=== PATIENT | male | born 1990 | race Caucasian/White ===

== ENCOUNTER 2019-07-31 09:20 | Emergency (ER) | payer SELFPAY ==
[2019-07-31] MEDS ORDERED: Aspirin 81 mg CHEW TAB* 81 MG TAB.CHEW PO ONE (09:29)
[2019-07-31 09:39] LABS: ABS Eosinophils 0.1 10^3/ul (0-0.6); ABS Lymphocytes 2.7 10^3/ul (1.0-4.8); ABS Monocytes 0.7 10^3/ul (0-0.8); Eosinophil % 1.1 %; Hematocrit 55 % (42-52); Hemoglobin 19.1 g/dL (14.0-18.0); Lymphocyte % 35.9 %; Mean Corpuscular HGB Conc 35 g/dL (31-36); Mean Corpuscular Hemoglobin 31 pg (27-31); Mean Corpuscular Volume 89 fL (80-94); Mean Platelet Volume 7.9 fL (7.4-10.4); Nucleated Red Blood Cells % 0.2; Platelet Count 269 10^3/uL (150-450); Red Blood Count 6.16 10^6 /uL (4.18-5.48); Red Cell Distribution Width 13 % (10-15); White Blood Count 7.4 10^3/uL (3.5-10.8)
--- NOTE | 2019-07-31 09:41 | ED ---
HPI Chest Pain - HPI Summary HPI Summary: 29 year old M presenting to [facility] with a chief complaint of constant pinching chest pain since 22:00 last night. The patient rates the pain 2/10 in severity. Patient reports nausea and vomiting this morning. Symptoms aggravated by nothing. Symptoms alleviated by nothing. The patient states that he is prescribed Hydroxyzine but did not take any today. Patient denies shortness of breath or syncope. He reports a history of anxiety for the last 5 months. He denies an active history of smoking or alcohol use. Medication list reviewed. Allergy list reviewed. Home Medications Medication Instructions Recorded Confirmed Type L.acidoph,Paracasei, B.lactis 1 each PO DAILY 07/31/19 07/31/19 History [Probiotic] hydrOXYzine HCL TAB* [Atarax 10 MG 10 mg PO .1-3X/DAY PRN 07/31/19 07/31/19 History TAB*] - History of Current Complaint Chief Complaint: EDChestPainROMI Time Seen by Provider: 07/31/19 09:28 Hx Obtained From: Patient Onset/Duration: Started Hours Ago Timing: Constant Current Severity: Mild Pain Intensity: 2 Pain Scale Used: 0-10 Numeric Character: Other: - Pinching Aggravating Factor(s): Nothing Alleviating Factor(s): Nothing Associated Signs and Symptoms: Positive: Nausea, Vomiting. Negative: Shortness of Breath, Syncope - Allergy/Home Medications Allergies/Adverse Reactions: Allergies Allergy/AdvReac Type Severity Reaction Status Date / Time No Known Allergies Allergy Verified 07/31/19 09:30 Home Medications: Home Medications L.acidoph,Paracasei, B.lactis [Probiotic] 1 each PO DAILY 07/31/19 [History Confirmed 07/31/19] hydrOXYzine HCL TAB* [Atarax 10 MG TAB*] 10 mg PO .1-3X/DAY PRN 07/31/19 [ History Confirmed 07/31/19] PMH/Surg Hx/FS Hx/Imm Hx EENT History: Denies: Hx Deafness Psychiatric History: Reports: Hx Anxiety Infectious Disease History: No Infectious Disease History: Denies: Traveled Outside the [place] in Last 30 Days - Family History Known Family History: Positive: Cardiac Disease - [place] at older age, Hypertension - Social History Alcohol Use: None Hx Tobacco Use: No Smoking Status (MU): Never Smoked Tobacco Review of Systems Positive: Chest Pain Negative: Shortness Of Breath Positive: Vomiting, Nausea Negative: Syncope All Other Systems Reviewed And Are Negative: Yes Physical Exam - Summary Physical Exam Summary: VITAL SIGNS: Reviewed. GENERAL: Patient is a well-developed and nourished male who is lying comfortable in the stretcher. Patient is not in any acute respiratory distress. HEAD AND FACE: No signs of trauma. No ecchymosis, hematomas or skull depressions. No sinus tenderness. EYES: PERRLA, EOMI x 2, No injected conjunctiva, no nystagmus. EARS: Hearing grossly intact. Ear canals and tympanic membranes are within normal limits. MOUTH: Oropharynx within normal limits. NECK: Supple, trachea is midline, no adenopathy, no JVD, no carotid bruit, no c- spine tenderness, neck with full ROM. CHEST: Symmetric, no tenderness at palpation. LUNGS: Clear to auscultation bilaterally. No wheezing or crackles. CVS: Regular rate and rhythm, S1 and S2 present, no murmurs or gallops appreciated. ABDOMEN: Soft, non-tender. No signs of distention. No rebound, no guarding, and no masses palpated. Bowel sounds are normal. EXTREMITIES: FROM in all major joints, no edema, no cyanosis or clubbing. NEURO: Alert and oriented x 3. No acute neurological deficits. Speech is normal and follows commands. SKIN: Dry and warm. Triage Information Reviewed: Yes Vital Signs On Initial Exam: Initial Vitals Temp Pulse Resp BP Pulse Ox 97.5 F 95 18 145/84 95 07/31/19 09:28 07/31/19 09:28 07/31/19 09:28 07/31/19 09:28 07/31/19 09:28 Vital Signs Reviewed: Yes Procedures - Sedation Patient Received Moderate/Deep Sedation with Procedure: No Diagnostics - Vital Signs Vital Signs Temp Pulse Resp BP Pulse Ox 07/31/19 09:28 97.5 F 95 18 145/84 95 - Laboratory Result Diagrams: 07/31/19 09:29 07/31/19 09:29 Lab Statement: Any lab studies that have been ordered have been reviewed, and results considered in the medical decision making process. - Radiology Chest x-ray Radiology Interpretation Completed By: Radiologist Summary of Radiographic Findings: No radiographic evidence for acute cardiopulmonary abnormality on this. portable chest x-ray. ED physician has reviewed this report. - EKG 09:25 Cardiac Rate: NL - 85 BPM EKG Rhythm: Sinus Rhythm Summary of EKG Findings: No ST elevations, inverted T-wave in leads 3 and AVL, and diffuse ST abnormalities with normal axis. ED physician has reviewed and interpreted this EKG. Chest Pain Course/Dx - Course Assessment/Plan: 29 year old M presenting to [facility] with a chief complaint of constant pinching chest pain since 22:00 last night. The patient rates the pain 2/10 in severity. Patient reports nausea and vomiting this morning. Symptoms aggravated by nothing. Symptoms alleviated by nothing. The patient states that he is prescribed Hydroxyzine but did not take any today. Patient denies shortness of breath or syncope. He reports a history of anxiety for the last 5 months. He denies an active history of smoking or alcohol use. Medication list reviewed. Allergy list reviewed. In the ED course the patient was placed on a cardiac rehabilitation specialist, IV access was obtained, IV fluids started. Past medical records reviewed. EKG: EKG is a normal sinus rhythm without any ST elevations. The patient has inverted T waves in II. No old EKG for comparison. Blood test w/o a significant abnormality except for hemoglobin of 19.1, hematocrit 55 , creatinine 1.22, the troponin is 0.00 and 4 hours apart the second troponin is also 0.00. Urinalysis is negative for UTI. Patient reports that all symptoms have resolved. Patient Heart score is: 0 therefore, low suspicion for CAD. Patient is not hypoxic or tachycardic. Wells criteria 0 . Therefore, no suspicion for PE. Patient has no abdominal bruit thus no suspicion for AAA. Patients pain does not radiate to the back and pain has resolved thus low suspicion for aortic dissection. I discussed all the findings and test results with the patient. Patient was instructed to return to the emergency room immediately if any of the symptoms return or worsen. Patient understands and agrees. Plan of care was discussed with the patient and patient understands and agrees. All questions were answered at patient satisfaction. There were no further complaints or concerns. PE before discharge: CVS: S1 and S2 present. No murmurs appreciated. Abdominal exam before discharge: Soft, non-tender. No signs of distention. No rebound no guarding, and no masses palpated. Bowel sounds are normal. Patient is alert and oriented x 3. Patient is hemodynamically stable. - Chest Pain Differential Diagnosis/HQI/PQRI: Acute [place], ACS, Angina, CHF, Chest Wall, GI Disease, Lower Respiratory Infection, Pulmonary Edema - Diagnoses Provider Diagnoses: Chest pain, Anxiety Discharge ED - Sign-Out/Discharge Documenting (check all that apply): Patient Departure - Discharge Plan Condition: Stable Disposition: HOME Patient Education Materials: Chest Pain (ED), Anxiety (ED) Referrals: Care [facility] [Outside] - 3 Days Additional Instructions: Follow up with your primary care provider within 3 days for chest pain and anxiety noted today. Return to the emergency department for any worsening or new symptoms. - Billing Disposition and Condition Condition: STABLE Disposition: Home - Attestation Statements Document Initiated by Scribe: Yes Documenting Scribe: Linda Ray Provider For Whom Manjitibe is Documenting (Include Credential): Ron Monique MD Scribe Attestation: Linda Quan scribed for Ron Monique MD on 08/01/19 at 1135. Scribe Documentation Reviewed: Yes Provider Attestation: The documentation as recorded by the Linda stallworth accurately reflects the service I personally performed and the decisions made by Ron duran MD Status of Scribe Document: Viewed
[2019-07-31] MEDS ORDERED: hydrOXYzine HCL TAB* 50 MG PO ONE (09:47)
[2019-07-31 09:54] LABS: Activated Partial Thrombo Time 34.2 seconds (26.0-38.0); INR 1.01 (0.82-1.09)
[2019-07-31 10:02] LABS: Albumin 4.8 g/dL (3.2-5.2); Albumin/Globulin Ratio 1.8 (1-3); BUN/Creatinine Ratio 12.3 (8-20); EGFR African American 86.2 (>60); EGFR Non-African American 71.3 (>60); Globulin 2.7 g/dL (2-4); Potassium 3.6 mmol/L (3.5-5.0); Total Bilirubin 1.2 mg/dL (0.2-1.0); Total Protein 7.5 g/dL (6.4-8.9)
[2019-07-31 10:05] LABS: CKMB ng/mL 1.2 ng/mL (0.6-6.3)
[2019-07-31 10:09] LABS: Urine Appearance Clear; Urine Bilirubin Negative (Negative); Urine Blood Negative (Negative); Urine Color Yellow; Urine Glucose Negative (Negative); Urine Ketones Negative (Negative); Urine Nitrite Negative (Negative); Urine Protein Negative (Negative); Urine Urobilinogen Negative (Negative)
[2019-07-31 11:21] LABS: TSH (Thyroid Stimulating Horm) 1.79 mcIU/mL (0.34-5.60)
[2019-07-31] MEDS ORDERED: NS 0.9% 1000 ML** 1,000 ML IV ONE (11:35)
[2019-07-31 13:59] VITALS: BP 139/82
== END 2019-07-31 13:59 | disposition home or self-care (01) ==
LOC: ED 09:20
DX: R07.89 Other chest pain (principal); F41.9 Anxiety disorder, unspecified; R11.2 Nausea with vomiting, unspecified
CPT/HCPCS: 36415; 71045; 80053; 81003; 82550; 82553; 83880; 84443; 84484; 85025; 85610; 85730; 93005; 96360; 99283; A9270-GY

== ENCOUNTER 2019-08-03 10:34 | Emergency (ER) | payer SELFPAY ==
--- NOTE | 2019-08-03 10:52 | ED ---
Complex/Multi-Sys Presentation - HPI Summary HPI Summary: Patient is a 29 year-old male presenting to [facility] accompanied by triny with a chief complaint of panic attack this morning as his recent health concerns are exacerbating his anxiety. He reports that he has been suffering from gradually worsening anxiety over the last few months, and he came to the ED on 07/31/2019 with burning chest pain resulting in possible concern for polycythemia but otherwise had a negative workup. Yesterday, he followed with his PCP, and during the physical, it was observed that his liver was enlarged, and labs were drawn to show elevated LFTs. The patient notes that he has a history of daily alcohol use but no longer drinks. He was advised by his PCP to have an EKG and liver U/S. Since then, his anxiety has increased. He has been taking Hydroxyzine for about a month around when he was diagnosed with the flu, and then he was recently prescribed Lexapro beginning on 07/31/2019 for anxiety. He states the Hydroxyzine only somewhat helps him with sleeping but not with the anxiety. He took melatonin last night as a sleep aid, but over the past few days he has only been sleeping about 3-4 hours. This morning, he felt the burning in his chest in the left anterior area radiating in the mid-sternal area despite taking Hydroxyzine about two hours ago. He endorses myalgias in the extremities, generalized weakness, diaphoresis, and decreased oral intake. Symptoms are rated 6/10 in severity. He denies any fever, chills, erythema of eyes, sore throat, rhinorrhea, shortness of breath, cough, abdominal pain, nausea, vomiting, dysuria, hematuria, edema, rash, or dizziness. He does not elicit any suicidal ideation. No other past medical history. Family history includes cardiac disease, hypertension. Nonsmoker, no alcohol use, no substance use. Medications reviewed. Allergies noted. - History Of Current Complaint Chief Complaint: EDGeneral Hx Obtained From: Patient Onset/Duration: Gradual Onset, Still Present, Worse Since Timing: Constant Severity Currently: Moderate Severity Initially: Moderate Location: Pain At: - burning in chest, myalgias in extremities Aggravating Factor(s): stress with health concerns Alleviating Factor(s): nothing Associated Signs And Symptoms: Positive: Weakness - generalized, Other - anxiety , myalgias in the extremities, iaphoresis, decreased oral intake; Negative: erythema of eyes, sore throat, rhinorrhea, hematuria, rash. Negative: Dizziness , SOB, Cough, Edema, Nausea, Vomiting, Abdominal Pain, Dysuria, Fever - Allergies/Home Medications Allergies/Adverse Reactions: Allergies Allergy/AdvReac Type Severity Reaction Status Date / Time No Known Allergies Allergy Verified 08/03/19 11:00 Home Medications: Home Medications L.acidoph,Paracasei, B.lactis [Probiotic] 1 each PO DAILY 07/31/19 [History Confirmed 08/03/19] hydrOXYzine HCL TAB* [Atarax 10 MG TAB*] 10 mg PO DAILY 07/31/19 [History Confirmed 08/03/19] Escitalopram * [Lexapro 5 mg (NF)] 5 mg PO DAILY 08/03/19 [History Confirmed 05/12] Melatonin (NF) 1.5 mg PO BEDTIME 08/03/19 [History Confirmed 08/03/19] PMH/Surg Hx/FS Hx/Imm Hx Endocrine/Hematology History: Denies: Hx Diabetes Cardiovascular History: Denies: Hx Hypercholesterolemia, Hx Hypertension Sensory History: Reports: Hx Contacts or Glasses Denies: Hx Deafness Opthamlomology History: Reports: Hx Contacts or Glasses Psychiatric History: Reports: Hx Anxiety - Surgical History Surgical History: None Surgery Procedure, Year, and Place: none Infectious Disease History: No Infectious Disease History: Denies: Traveled Outside the [place] in Last 30 Days - Family History Known Family History: Positive: Cardiac Disease - [place] at older age, Hypertension - Social History Alcohol Use: None Alcohol Amount: history of alcohol use Hx Substance Use: No Substance Use Type: Reports: None Hx Tobacco Use: No Smoking Status (MU): Never Smoked Tobacco Review of Systems Positive: Skin Diaphoresis, Other - sleep disturbance. Negative: Fever, Chills Negative: Erythema Negative: Sore Throat, Nasal Discharge Positive: Chest Pain - burning sensation left anterior to mid sternal Negative: Shortness Of Breath, Cough Positive: Other - decreased oral intake. Negative: Abdominal Pain, Vomiting, Nausea Negative: dysuria, hematuria Positive: Myalgia - extremities. Negative: Edema Negative: Rash Neurological/Mental Status: Other - Negative: dizziness Positive: Weakness - generalized Positive: Anxious. Negative: Other - suicidal ideation All Other Systems Reviewed And Are Negative: Yes Physical Exam - Summary Physical Exam Summary: Constitutional: Well-developed, Well-nourished, Alert. (-) Distressed Skin: Warm, Dry HENT: Normocephalic; Atraumatic Eyes: Conjunctiva normal Neck: Musculoskeletal ROM normal neck. (-) JVD, (-) Stridor, (-) Tracheal deviation Cardio: Rhythm regular, rate normal, Heart sounds normal; Intact distal pulses; The pedal pulses are 2+ and symmetric. Radial pulses are 2+ and symmetric. (-) Murmur Pulmonary/Chest wall: Effort normal. (-) Respiratory distress, (-) Wheezes, (-) Rales Abd: Soft, (-) tenderness, (-) Distension, (-) Guarding, (-) Rebound Musculoskeletal: (-) Edema Lymph: (-) Cervical adenopathy Neuro: Alert, Oriented x3 Psych: Anxious-appearing, Mood and affect otherwise Normal Triage Information Reviewed: Yes Vital Signs On Initial Exam: Initial Vitals Temp Pulse Resp BP Pulse Ox 97.7 F 103 20 163/96 98 08/03/19 10:35 08/03/19 10:35 08/03/19 10:35 08/03/19 10:35 08/03/19 10:35 Vital Signs Reviewed: Yes Procedures - Sedation Patient Received Moderate/Deep Sedation with Procedure: No Diagnostics - Vital Signs Vital Signs Temp Pulse Resp BP Pulse Ox 08/03/19 10:35 97.7 F 103 20 163/96 98 - Laboratory Result Diagrams: 08/03/19 11:14 08/03/19 11:13 Lab Statement: Any lab studies that have been ordered have been reviewed, and results considered in the medical decision making process. - Radiology CXR Radiology Interpretation Completed By: Radiologist Summary of Radiographic Findings: Impression: No radiographic evidence of acute cardiopulmonary disease. ED physician has reviewed this report. - Ultrasound Abd U/S Ultrasound Interpretation Completed By: Radiologist Summary of Ultrasound Findings: Impression: 1. Borderline hepatomegaly. Hepatosteatosis. 2. Negative for gallbladder pathology. ED physician has reviewed this report. - EKG 1107 Cardiac Rate: NL - 87 BPM EKG Rhythm: Sinus Rhythm Summary of EKG Findings: An EKG at 1107 reveals normal sinus rhythm at 87 BPM. No STEMI. ED physician has reviewed and interpreted this EKG. Re-Evaluation - Re-Evaluation First Eval Re-Evaluation Time: 14:15 Comment: We discussed all results and discharge plan. Patient is agreeable with discharge but would like to speak with mental health first. Complex Multi-Symp Course/Dx Course Of Treatment: Patient is a 29 year-old male presenting with gradually worsening anxiety over the last few months exacerbated with recent changes in health, beginning with the flu a month ago, burning chest pain evaluated three days ago in the ED, and yesterday after an appointment with his PCP who has concern for hepatomegaly and elevated LFTs and polycythemia warranting recommendation for EKG and liver U/S. Patient on Hydroxyzine for a month and Lexapro since 07/31/2019 without much relief of his anxiety, resulting in burning in the chest, sleep disturbance, decreased appetite, episodes of diaphoresis, mylagias in the extremities, and generalized weakness. No respiratory symptoms. No suicidal ideation. Noted alcohol use in the past but no current use. Nonsmoker. Physical exam significant for patient appearing anxious. Patient placed on release and technical records clerk. IV access obtained. Patient received Xanax PO for anxiety. Blood work reveals RBCs 5.97, hemoglobin 18.8, hematocrit 53, glucose 112, lactic acid 2.5, ALT 121. Negative troponin. TSH and free T4 within normal limits. EKG shows normal sinus rhythm at rate of 87 BPM, non-diagnostic for STEMI. Abdominal U/S reveals borderline hepatomegaly with hepatosteatosis, no gallbladder pathology. Chest XR is negative for acute cardiopulmonary disease. Reviewed office visit notes. PCP detected hepatomegaly on exam. Plan was to further workup polycythemia and get EKG and O2 saturation at next visit. All results discussed with patient. Patient is safe for discharge with plan for follow up with PCP in 1 week and hematology/oncology in 1-2 weeks. Patient agreeable with plan. Telma, psychiatric evaluation, is going to get [facility] involved with the patient following the patients request to speak with the mental health team. Patient agreeable with plan. - Diagnoses Provider Diagnoses: Panic attack, Chest pain, unspecified, Fatty liver, Elevated red blood cell count - Physician Notifications Discussed Care Of Patient With: Telma - psychiatric Instructed by Provider To: Other - Telma has spoken with the patient and will set up a plan for the patient with [facility]. Discharge ED - Sign-Out/Discharge Documenting (check all that apply): Patient Departure - Patient will be discharged home. - Discharge Plan Condition: Stable Disposition: HOME Patient Education Materials: Chest Pain (DC), Panic Attack (ED) Referrals: Care [facility] [Outside] - 1 Week Maribel Snider NP [Medical Doctor] - 2 Weeks Additional Instructions: Follow up with your primary care provider in 1 week. Follow up with hematology/ oncology in 1-2 weeks. Return to the emergency department for any new or worsening symptoms. - Attestation Statements Document Initiated by Scribe: Yes Documenting Scribe: Angela Henson Provider For Whom Manjitibe is Documenting (Include Credential): Aly Chanel MD Scribe Attestation: Angela Quan, scribed for Aly Chanel MD on 08/03/19 at 1705. Status of Scribe Document: Ready
[2019-08-03] MEDS ORDERED: ALPRAZolam TAB* 0.5 MG PO ONE (11:02)
[2019-08-03 11:41] LABS: ABS Basophils 0.1 10^3/ul (0-0.2); ABS Lymphocytes 1.8 10^3/ul (1.0-4.8); ABS Monocytes 0.8 10^3/ul (0-0.8); ABS Neutrophils 7.6 10^3/ul (1.5-7.7); Eosinophil % 0.2 %; Hematocrit 53 % (42-52); Hemoglobin 18.8 g/dL (14.0-18.0); Lymphocyte % 17.7 %; Mean Corpuscular HGB Conc 35 g/dL (31-36); Mean Corpuscular Hemoglobin 32 pg (27-31); Mean Corpuscular Volume 89 fL (80-94); Mean Platelet Volume 8.2 fL (7.4-10.4); Nucleated Red Blood Cells % 0.1; Platelet Count 260 10^3/uL (150-450); Red Blood Count 5.97 10^6 /uL (4.18-5.48); Red Cell Distribution Width 13 % (10-15); White Blood Count 10.2 10^3/uL (3.5-10.8)
[2019-08-03 12:01] LABS: Albumin 4.8 g/dL (3.2-5.2); Calcium 10.1 mg/dL (8.6-10.3); Potassium 3.5 mmol/L (3.5-5.0); Total Bilirubin 0.8 mg/dL (0.2-1.0)
[2019-08-03 12:07] LABS: Albumin/Globulin Ratio 1.8 (1-3); BUN/Creatinine Ratio 10.5 (8-20); EGFR African American 93.2 (>60); EGFR Non-African American 77.1 (>60); Globulin 2.6 g/dL (2-4); Total Protein 7.4 g/dL (6.4-8.9)
[2019-08-03 12:20] LABS: TSH (Thyroid Stimulating Horm) 1.49 mcIU/mL (0.34-5.60)
[2019-08-03 14:24] LABS: T4, Total 9.08 mcg/dL (6.09-12.23)
[2019-08-03 16:09] VITALS: BP 125/80
== END 2019-08-03 16:08 | disposition home or self-care (01) ==
LOC: ED 10:34
DX: R07.9 Chest pain, unspecified (principal); F41.0 Panic disorder [episodic paroxysmal anxiety]; K76.0 Fatty (change of) liver, not elsewhere classified; R71.8 Other abnormality of red blood cells; R45.851 Suicidal ideations; F41.9 Anxiety disorder, unspecified; R53.1 Weakness; Z79.899 Other long term (current) drug therapy
CPT/HCPCS: 36415; 71046; 76705; 80053; 83605; 84436; 84443; 84484; 85025; 93005; 99283; A9270-GY

== ENCOUNTER 2019-08-04 11:00 | Emergency (ER) | payer SELFPAY ==
--- NOTE | 2019-08-04 11:26 | ED ---
Psychiatric Complaint - HPI Summary HPI Summary: 29 year old M presenting to [facility] accompanied by female senior sales manager complains of chest tightness from anxiety and SI since waking up this morning 08/04/2019. Patient reports a history of anxiety and depression but has never been hospitalized for it before. He just started lexapro on 07/30 and uses hydroxyzine for anxiety. FHx of anxiety and heart disease. The patient rates the pain 5/10 in severity. Symptoms aggravated by nothing. Symptoms alleviated by nothing. - History Of Current Complaint Chief Complaint: EDSuicidal Time Seen by Provider: 08/04/19 11:13 Hx Obtained From: Patient Onset/Duration: Sudden Onset, Still Present Aggravating Factor(s): Nothing Alleviating Factor(s): Nothing - Allergies/Home Medications Allergies/Adverse Reactions: Allergies Allergy/AdvReac Type Severity Reaction Status Date / Time No Known Allergies Allergy Verified 08/04/19 11:04 Home Medications: Home Medications L.acidoph,Paracasei, B.lactis [Probiotic] 1 each PO DAILY 07/31/19 [History Confirmed 08/04/19] hydrOXYzine HCL TAB* [Atarax 10 MG TAB*] 10 mg PO TID PRN 07/31/19 [History Confirmed 08/04/19] Escitalopram * [Lexapro 5 mg (NF)] 5 mg PO DAILY 08/03/19 [History Confirmed ] Melatonin (NF) 1.5 mg PO BEDTIME 08/03/19 [History Confirmed 08/04/19] PMH/Surg Hx/FS Hx/Imm Hx Endocrine/Hematology History: Denies: Hx Diabetes Cardiovascular History: Denies: Hx Hypercholesterolemia, Hx Hypertension Sensory History: Reports: Hx Contacts or Glasses Denies: Hx Deafness Opthamlomology History: Reports: Hx Contacts or Glasses Psychiatric History: Reports: Hx Anxiety - Surgical History Surgery Procedure, Year, and Place: none Infectious Disease History: No Infectious Disease History: Denies: Traveled Outside the [place] in Last 30 Days - Family History Known Family History: Positive: Cardiac Disease - [place] at older age, Hypertension - Social History Alcohol Use: Rare Alcohol Amount: history of alcohol use Hx Substance Use: No Substance Use Type: Reports: None Hx Tobacco Use: No Smoking Status (MU): Former Smoker Review of Systems Positive: Other - chest tightness Positive: Anxious, Other - SI All Other Systems Reviewed And Are Negative: Yes Physical Exam - Summary Physical Exam Summary: Constitutional: Well-developed, Well-nourished, Alert. (-) Distressed Skin: Warm, Dry HENT: Normocephalic; Atraumatic Eyes: Conjunctiva normal Neck: Musculoskeletal ROM normal neck. (-) JVD, (-) Stridor, (-) Nuchal rigidity Cardio: Rhythm regular, rate normal, Heart sounds normal; Intact distal pulses; Radial pulses are 2+ and symmetric. (-) Murmur Pulmonary/Chest wall: Effort normal. (-) Respiratory distress, (-) Wheezes, (-) Rales Abd: Soft, (-) tenderness, (-) Distension, (-) Guarding, (-) Rebound Musculoskeletal: (-) Edema Lymph: (-) Cervical adenopathy Neuro: Alert, Oriented x3 Psych: Anxious Triage Information Reviewed: Yes Vital Signs On Initial Exam: Initial Vitals Temp Pulse Resp BP Pulse Ox 98.3 F 97 16 153/119 98 08/04/19 11:02 08/04/19 11:02 08/04/19 11:02 08/04/19 11:02 08/04/19 11:02 Vital Signs Reviewed: Yes Procedures - Sedation Patient Received Moderate/Deep Sedation with Procedure: No Diagnostics - Vital Signs Vital Signs Temp Pulse Resp BP Pulse Ox 08/04/19 11:02 98.3 F 97 16 153/119 98 - Laboratory Result Diagrams: 08/04/19 11:20 08/04/19 11:20 Lab Statement: Any lab studies that have been ordered have been reviewed, and results considered in the medical decision making process. - EKG 1124 Cardiac Rate: NL EKG Rhythm: Sinus Rhythm Summary of EKG Findings: An EKG at 1124 reveals normal sinus rhythm at a rate of 82 BPM with T wave inversions in V2 and V3. No STEMI. No change from yesterday. ED physician has reviewed and interpreted this EKG. Course/Dx - Course Course Of Treatment: Patient taking for mental health clearance. EKG sinus, suspect symptoms 2/2 anxiety. Patient has no active medical conditions warrantly further w/u, vital signs are stable. Patient placed in mental health gown and placed on observation. We'll obtain mental health evaluation. - Differential Dx/Clinical Impression Provider Diagnosis: Depression, Anxiety - Physician Notifications Discussed Care Of Patient With: Grupo Mcconnell - Wants to wait till parents arrive to see what they think of his safety level. At 18:45 the patient will be discharged with a diagnosis of depression as per Dr. Christopher Time Discussed With Above Provider: 13:33 Discharge ED - Sign-Out/Discharge Documenting (check all that apply): Patient Departure - Discharge Plan Condition: Stable Disposition: HOME Referrals: No Primary Care Phys,NOPCP [Primary Care Provider] - - Billing Disposition and Condition Condition: STABLE Disposition: Home - Attestation Statements Document Initiated by Scribe: Yes Documenting Scribe: Sky Strange Provider For Whom Scribe is Documenting (Include Credential): Dr.Caelyn Jane Penn Scribe Attestation: I, Sky Strange, scribed for Dr.Caelyn Jane Penn on 08/04/19 at 1846. Scribe Documentation Reviewed: Yes Provider Attestation: The documentation as recorded by the Sky stallworth accurately reflects the service I personally performed and the decisions made by me, Dr.Caelyn Jane Penn Status of Scribe Document: Viewed
[2019-08-04 11:35] LABS: ABS Monocytes 0.7 10^3/ul (0-0.8); ABS Neutrophils 3.4 10^3/ul (1.5-7.7); Eosinophil % 0.5 %; Hematocrit 51 % (42-52); Lymphocyte % 32.9 %; Mean Corpuscular HGB Conc 35 g/dL (31-36); Mean Corpuscular Hemoglobin 31 pg (27-31); Mean Corpuscular Volume 90 fL (80-94); Mean Platelet Volume 7.9 fL (7.4-10.4); Nucleated Red Blood Cells % 0.2; Platelet Count 245 10^3/uL (150-450); Red Blood Count 5.73 10^6 /uL (4.18-5.48); Red Cell Distribution Width 13 % (10-15); White Blood Count 6.1 10^3/uL (3.5-10.8)
--- OUTSIDE RECORDS SUMMARY | 2019-08-04 11:48 | XMS REPORT ---
:1990 Author Organization [facility] Care Team Providers Name Role Phone Jennifer Rodriguez Primary Care Physician Unavailable Allergies, Adverse Reactions, Alerts Allergy Code CodeSystem Reaction Severity Criticality Status Start Substance Date Moderate Medications Medication Medication Medication Start Stop Route Dose Status Fill Code CodeSystem Date Date Instructions RxNorm Problems Problem Code CodeSystem Alternate Alternate Start End Status Narrative Name Code CodeSystem Date Date Panic [id number] SNOMED-CT 2019-07 Active disorder -12 Relevant diagnostic tests/laboratory data Narrative No Information Procedures Procedure Code CodeSystem Target Date of Status Service Device Device Device Name Site Procedure Delivery Code Name UID Location SNOMED-CT () 2019-07-26 [facility] [address], [place], [id number] Encounters/Encounter Diagnoses Encounter Name Encounter Diagnosis Diagnosis Diagnosis Date of Service Code Code Name CodeSystem Diagnosis Delivery Location Crisis H2011 [id number] Panic SNOMED-CT 2019-07-26 [facility] [address], [place], [phone] Vital Signs No Information Social History Element Description Description Start End Code CodeSystem AdditionalInfo Date Date SexAssignedAtBirth Male 1991-0 M AdministrativeGender 05-25 Hospital Discharge Instructions Reason For Referral Medical Equipment FDA Assessments
[2019-08-04 11:50] LABS: ALT 116 U/L (7-52); AST 32 U/L (13-39); Albumin 4.6 g/dL (3.2-5.2); Albumin/Globulin Ratio 1.8 (1-3); Alkaline Phosphatase 64 U/L (34-104); Anion Gap 6 mmol/L (2-11); Blood Urea Nitrogen 14 mg/dL (6-24); CO2 Carbon Dioxide 29 mmol/L (22-32); Calcium 9.7 mg/dL (8.6-10.3); Chloride 103 mmol/L (101-111); EGFR African American 90.5 (>60); EGFR Non-African American 74.8 (>60); Globulin 2.5 g/dL (2-4); Glucose 101 mg/dL (70-100); Potassium 3.6 mmol/L (3.5-5.0); Sodium 138 mmol/L (135-145); Total Protein 7.1 g/dL (6.4-8.9)
[2019-08-04 11:58] LABS: Urine Appearance Clear; Urine Color Colorless; Urine Specific Gravity 1.005 (1.010-1.030); Urine Urobilinogen Negative (Negative)
[2019-08-04 11:59] LABS: Urine Bilirubin Negative (Negative); Urine Blood Negative (Negative); Urine Glucose Negative (Negative); Urine Ketones Negative (Negative); Urine Nitrite Negative (Negative); Urine Protein Negative (Negative)
[2019-08-04 12:03] LABS: Urine Benzodiazepine Screen None Detected (None Detect); Urine Opiates Screen None Detected (None Detect)
[2019-08-04 12:10] LABS: Acetaminophen < 15 mcg/mL; Alcohol < 10 mg/dL (<10); Salicylate < 2.50 mg/dL (<30)
[2019-08-04 12:24] LABS: TSH (Thyroid Stimulating Horm) 1.06 mcIU/mL (0.34-5.60)
[2019-08-04] MEDS ORDERED: hydrOXYzine HCL TAB* 25 MG PO ONE (13:28)
[2019-08-04 18:56] VITALS: BP 149/98
== END 2019-08-04 18:54 | disposition home or self-care (01) ==
LOC: ED 11:00
DX: F41.9 Anxiety disorder, unspecified (principal); F32.9 Major depressive disorder, single episode, unspecified; Z87.891 Personal history of nicotine dependence; Z79.899 Other long term (current) drug therapy
CPT/HCPCS: 36415; 80053; 80307; 80320; 80329; 81003; 84443; 85025; 93005; 99284; A9270-GY; G0480

== ENCOUNTER 2019-08-04 19:39 | Inpatient (IN) | payer MEDICAID ==
--- NOTE | 2019-08-04 20:32 | ED ---
Psychiatric Complaint - HPI Summary HPI Summary: Patient is a 29 year-old male presenting to [facility] with a chief complaint of panic attack and worsening anxiety immediately prior to arrival. He was in the ED earlier today for a similar episode, and he had a mental health evaluation allowing him to be discharged home, although he was offered admission and declined because he felt well enough to go home. While on his way home, he suddenly became anxious again and decided to return to the ED requesting admission. His symptoms are currently rated 6/10 in severity. He has been having suicidal thoughts for three days with plan for crashing his car yesterday. His recently has been stressed and concerned for his health as he has had a workup for hepatomegaly, polycythemia, and anxiety causing chest pain yesterday in the ED and earlier in the week by his PCP. He had a psychiatric evaluation yesterday as well and was advised to follow up with [facility]. He is currently on Lexapro and Hydroxyzine for anxiety and depression although he still has been experiencing sleep disturbance. He had Hydroxyzine 10mg this morning and 25mg around 11:00 while in the ED. No other past medical history. Former smoker, no current alcohol use, no substance use. Medications reviewed. Allergies noted. - History Of Current Complaint Chief Complaint: EDMentalHealth Time Seen by Provider: 08/04/19 19:50 Hx Obtained From: Patient Onset/Duration: Sudden Onset, Still Present Timing: Constant Severity Initially: Moderate Severity Currently: Moderate Character: Anxious Aggravating Factor(s): Recent Stress - health concerns Alleviating Factor(s): Nothing Associated Signs And Symptoms: Positive: Sleep Disturbance Related History: Positive For: Prior Psychiatric Issues - anxiety, depression Has Suicidal: Reports: Thoughts, With A Plan - crashing car - Allergies/Home Medications Allergies/Adverse Reactions: Allergies Allergy/AdvReac Type Severity Reaction Status Date / Time No Known Allergies Allergy Verified 08/04/19 11:04 Home Medications: Home Medications L.acidoph,Paracasei, B.lactis [Probiotic] 1 each PO DAILY 07/31/19 [History Confirmed 08/04/19] hydrOXYzine HCL TAB* [Atarax 10 MG TAB*] 10 mg PO TID PRN 07/31/19 [History Confirmed 08/04/19] Escitalopram * [Lexapro 5 mg (NF)] 5 mg PO DAILY 08/03/19 [History Confirmed ] Melatonin (NF) 1.5 mg PO BEDTIME 08/03/19 [History Confirmed 08/04/19] PMH/Surg Hx/FS Hx/Imm Hx Endocrine/Hematology History: Denies: Hx Diabetes Cardiovascular History: Denies: Hx Hypercholesterolemia, Hx Hypertension Sensory History: Reports: Hx Contacts or Glasses Denies: Hx Deafness Opthamlomology History: Reports: Hx Contacts or Glasses Psychiatric History: Reports: Hx Anxiety, Hx Depression Denies: Hx Eating Disorder, Hx Post Traumatic Stress Disorder - ?, Hx Schizophrenia, Hx Suicide Attempt - Surgical History Surgical History: None Surgery Procedure, Year, and Place: none Infectious Disease History: No Infectious Disease History: Denies: Traveled Outside the [place] in Last 30 Days - Family History Known Family History: Positive: Cardiac Disease - [place] at older age, Hypertension - Social History Alcohol Use: Rare Alcohol Amount: history of alcohol use Hx Substance Use: No Substance Use Type: Reports: None Hx Tobacco Use: No Smoking Status (MU): Former Smoker - Additional Comments History Additional Comments: anxiety, depression, alcohol abuse, hepatomegaly Review of Systems - ROS Summary Review of Systems Summary: Home Medications Medication Instructions Recorded Confirmed Type L.acidoph,Paracasei, B.lactis 1 each PO DAILY 07/31/19 08/04/19 History [Probiotic] hydrOXYzine HCL TAB* [Atarax 10 MG 10 mg PO TID PRN 07/31/19 08/04/19 History TAB*] Escitalopram * [Lexapro 5 mg (NF)] 5 mg PO DAILY 08/03/19 08/04/19 History Melatonin (NF) 1.5 mg PO BEDTIME 08/03/19 08/04/19 History Positive: Other - sleep disturbance Positive: Anxious, Other - suicidal thoughts with plan All Other Systems Reviewed And Are Negative: Yes Physical Exam - Summary Physical Exam Summary: General: Well-developed, Well-nourished male. No acute distress. HEENT: Normocephalic, Atraumatic. Eyes: Conjuctiva normal, PERRL. Oropharynx: Clear, mucous membranes moist, (-) exudates. Neck: Soft, FROM, (-) lymphadenopathy, (-) thyromegaly, (-) JVD. Cardiovascular: Normal sinus rhythm, (-) murmur. Lungs: Clear to auscultation bilaterally (-) wheezes, (-) rales, (-) rhonchi. Abdomen: Soft, non-tender, non-distended, (-) organomegaly, normal bowel sounds. Back: (-) CVA tenderness Extremities: No edema. Skin: Warm, dry, (-) rash. Neuro: Alert and oriented x3, moves all extremities equally. No ataxia. No gait disturbance. No sensory deficit. Normal strength, normal sensation. Psychiatric: Mood normal, affect is flat. Triage Information Reviewed: Yes Vital Signs On Initial Exam: Initial Vitals Temp Pulse Resp BP Pulse Ox 98.4 F 107 20 150/105 98 08/04/19 19:40 08/04/19 19:40 08/04/19 19:40 08/04/19 19:40 08/04/19 19:40 Vital Signs Reviewed: Yes Procedures - Sedation Patient Received Moderate/Deep Sedation with Procedure: No Diagnostics - Vital Signs Vital Signs Temp Pulse Resp BP Pulse Ox 08/04/19 19:40 98.4 F 107 20 150/105 98 - Laboratory Lab Statement: Any lab studies that have been ordered have been reviewed, and results considered in the medical decision making process. Re-Evaluation - Re-Evaluation First Eval Re-Evaluation Time: 20:20 Comment: Patient is medically clear for MHE. Second Eval Re-Evaluation Time: 21:12 Comment: Hydroxyzine 25mg ordered Course/Dx - Course Course Of Treatment: 29-year-old male presents 20 minutes after discharge with panic attack. Patient states he initially came in because he was having suicidal thoughts. He was seen by mental health and evaluated. Admission was recommended and patient declined. He states however he had just left and became overwhelmed and anxious. Patient has a flat affect no significant physical findings. Workup has been done previously today. Patient seen by mental health and referred for admission. Patient received 25mg Hydroxyzine. - Differential Dx/Clinical Impression Provider Diagnosis: Depressive disorder - Physician Notifications Discussed Care Of Patient With: Dustin Rodriguez - psychiatric jewelry bench worker Time Discussed With Above Provider: 21:00 Instructed by Provider To: Other - Dustin and Dr. Christopher from psychiatry have evaluated the patient and determined him appropriate for admission on a voluntary status. Discharge ED - Sign-Out/Discharge Documenting (check all that apply): Patient Departure - Patient admitted to [facility] by Dr. Christopher. - Discharge Plan Condition: Stable Disposition: PSYCHIATRIC FACILITY-[facility] - Billing Disposition and Condition Condition: STABLE Disposition: Psychiatric Facility [facility] - Attestation Statements Document Initiated by Manjitibe: Yes Documenting Scribe: Angela Henson Provider For Whom Manjitibe is Documenting (Include Credential): Zandra Gregorio MD Scribe Attestation: Angela Quan, scribed for Zandra Gregorio MD on 08/04/19 at 2345. Scribe Documentation Reviewed: Yes Provider Attestation: The documentation as recorded by the Angela stallworth accurately reflects the service I personally performed and the decisions made by me, Zandra Gregorio MD Status of Scribe Document: Viewed
[2019-08-04] MEDS ORDERED: hydrOXYzine HCL TAB* 25 MG PO ONE (21:12)
[2019-08-04] MEDS ORDERED: Acetaminophen TAB* 325 MG PO PRN (21:39)
[2019-08-04] MEDS ORDERED: Nicotine* 2MG (FRUIT FLAVOR) GUM PO PRN (21:39)
[2019-08-04] MEDS ORDERED: Al Hydrox/Mg Hydrox/Simet LIQ* 30 ML UDC PO PRN (21:39)
[2019-08-04] MEDS ORDERED: diPHENhydraMINE PO* 25 MG PO PRN (21:42)
[2019-08-04] MEDS: hydrOXYzine HCL TAB* 25 MG PO PRN (21:50)
[2019-08-04] MEDS ORDERED: Escitalopram * 5 MG TAB PO ONE (23:21)
[2019-08-04] MEDS ORDERED: LORazepam TAB(*) 1 MG ONE (23:21)
[2019-08-04] MEDS ORDERED: Melatonin 3 MG TAB PO ONE (23:21)
[2019-08-04] MEDS: Escitalopram * 5 MG TAB PO SCH (23:26)
[2019-08-04] MEDS: LORazepam TAB(*) 1 MG PO PRN (23:26)
[2019-08-04] MEDS: Melatonin 3 MG TAB PO PRN (23:26)
[2019-08-05 08:30] LABS: HDL Cholesterol 33.2 mg/dL
[2019-08-05] MEDS: Vitamin THERAPEUTIC TAB PO SCH (11:32)
--- NOTE | 2019-08-05 18:30 | HP ---
HISTORY AND PHYSICAL: DATE OF ADMISSION: IDENTIFYING DATA: Maicol is a 29-year-old male with no prior history of psychiatric hospital ization, who came to the ED almost every other day for the last week in the context of having severe anxiety attacks. He was sent home each time including once yesterday in the evening. However, on s way back home with his parents, he started having another attack and came back to the emergency [facility] for help. First time when he was offered to come in, he declined, but second time yesterday he wan reddy to stay. HISTORY OF PRESENT ILLNESS: Maicol reports that he has been suffering from anxiety and depression for a while and saw a mental health professional in the recent past; however, he is not sure whether that was a doctor or a therapist. He has been on Lexapro 5 mg in the past and was recently started back on by his primary care physician and he has been taking it without much of improvement. He describes his mood as mostly depressed and anxious. Otherwise, denies any ongoing suicidal thought until rece nt past when due to repeated anxiety attacks he thought about suicide without any plan. He denies an y ongoing stress other than undiagnosed physical health conditions including hepatomegaly and polycyt hemia. His primary care physician has been working on both to rule in or rule out. PAST PSYCHIATRIC HISTORY: Unremarkable other than being prescribed Lexapro by his primary care physi gómez along with hydroxyzine and melatonin in low dose. PAST MEDICAL HISTORY: None confirmed, diagnoses of physical health conditions including hepatomegaly and polycythemia. ALLERGIES: No known drug allergies. FAMILY HISTORY: Unremarkable. 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 His grades are good. He is in a significant relationship with brice salas and planning to get in January of this year. No legal issues. His parents are very supportive. PHYSICAL EXAMINATION GENERAL: At this time, he is not in any physical distress. He is a healthy- appearing, short-statur ed male. VITAL SIGNS: His vitals showed a blood pressure of 150/105 with 107 pulse, 20 respirations, 98.4 deg samina Fahrenheit temperature. HEENT: Head: Atraumatic, normocephalic. Eyes: Clear conjunctivae. PERRLA. EOMI x2. Oropharynx c lear. No exudate. NECK: Supple. No lymphadenopathy or thyromegaly. LUNGS: Clear to auscultation bilaterally without any wheezes, rales, or rhonchi. CARDIOVASCULAR: Normal heart sounds. S1 and S2 only. No gallops or murmurs. ABDOMEN: Soft, nontender. No organomegaly. Normal bowel sounds in all quadrants. MUSCULOSKELETAL: Within normal limits. NEUROLOGICAL: No sensory deficits. Cranial nerves II through XII grossly intact. Physical exam done in the emergency room along with lab work were reviewed and were unremarkable. MENTAL STATUS EXAMINATION: Maicol is appropriately dressed, fairly groomed, short- statured, healthy- appearing male, who is alert and oriented to time, place, and person. His speech is normal in all spheres. Makes good eye contact. Describes his mood as depressed and anxious. Observed affe ct appears to be somewhat restricted. There was no evidence of any thought, psychomotor, or perceptu al disturbances. His intelligence appears to be average as evidenced by his vocabulary, educational background, and fund of knowledge. Memory functions are intact all spheres. He currently denies any suicidal thoughts, also denies any homicidal thoughts. His insight and judgment appear to be fair. SUMMARY: This 29-year-old male, full-time college student, who has been experiencing mixed anxiety and depressive symptoms for some time now and his anxiety symptoms worsened during the last week or so to a point that he needed to come to the emergency room multiple times. He was hospitaliz ed last evening in the context of repeated anxiety attacks and suicidal thoughts with a plan. DIAGNOSTIC IMPRESSION: MENTAL HEALTH DIAGNOSES: 1. Major depressive disorder, recurrent, severe, without psychotic features. 2. Rule out unspecified anxiety disorder. 3. Rule out panic disorder. PHYSICAL HEALTH DIAGNOSES: 1. Rule out polycythemia. 2. Rule out hepatomegaly. TREATMENT RECOMMENDATIONS: Maicol will benefit from a brief hospitalization for his safety, diagnostic clarification, and optimization of his outpatient treatments. His code status will remain full. Sup portive milieu, individual and group therapy will be initiated. We have talked about optimizing his outpatient medication treatments. He agrees to go up on Lexapro to 10 mg at this time and continue h is hydroxyzine for anxiety at this time. Rest of his psychopharmacological management will be deferr ed to his assigned psychiatrist on the unit. [id number]/[facility] #: [id number]
[2019-08-05] MEDS: Escitalopram * 5 MG TAB PO SCH (22:05)
[2019-08-05] MEDS: Melatonin 3 MG TAB PO PRN (22:08)
[2019-08-06] MEDS: LORazepam TAB(*) 1 MG PO PRN (08:58)
[2019-08-06] MEDS: Vitamin THERAPEUTIC TAB PO SCH (08:59)
[2019-08-06] MEDS ORDERED: Ondansetron TAB* 4 MG ONE (12:00)
[2019-08-06] MEDS ORDERED: Ondansetron TAB* 4 MG PO ONE (12:00)
[2019-08-06] MEDS: Escitalopram * 5 MG TAB PO SCH (21:57)
[2019-08-06] MEDS: Melatonin 3 MG TAB PO PRN (22:00)
[2019-08-07] MEDS: Vitamin THERAPEUTIC TAB PO SCH (08:35)
[2019-08-07] MEDS: hydrOXYzine HCL TAB* 25 MG PO PRN (08:35)
[2019-08-07] MEDS ORDERED: Escitalopram * 10 MG TAB PO SCH (09:00)
[2019-08-07 10:54] VITALS: BP 159/88
--- NOTE | 2019-08-08 00:08 | DS ---
CC: Dr. Feliz, [facility], [facility].* DISCHARGE SUMMARY: DATE OF ADMISSION: 08/04/19 DATE OF DISCHARGE: 08/07/19 SUPERVISING PSYCHIATRIST: Dr. Grupo Mcconnell.* (DICTATED BY ELVIS MCDONALD NP) DIAGNOSES: 1. Major depressive disorder, recurrent, severe, without psychotic features. 2. Unspecified anxiety disorder. CONDITION AT THE TIME OF DISCHARGE: Improved. The patient is euthymic with full range of affect. He denies suicidal ideation. He reports he is future oriented. He states that he has benefited from being in the hospital and restarting escitalopram. He reports desire to be discharged as soon as possible. He was very open and discussed stresses with treatment team. He stated that he recently saw a video about schizophrenia and was concerned about this, but does not meet any criteria and was alleviated to know that it is not a likely diagnosis for him. He talked about his time in the and various stresses related to that, various memories related to that, as well as concern about physical health. He was very receptive to information that he was medically cleared to come to the mental health unit. He reports talking about his time in the was very relieving. He also notes that he tends to avoid talking to his mother about such issues as his parents were involved in a homicide/suicide when he was a teenager. He states that his fiance, Silvia, is very supportive and that he talks to her a lot as well. We discussed the benefit of having a therapist to talk to about past traumatic episodes and he is agreeable to do so. He reports that hydroxyzine was a bit too sedating and agreed to trial propranolol before leaving. He is also informed of adequate dose of 10 mg Lexapro and encouraged to allow a good month for a full therapeutic value. He reports that he use to run daily and that this is beneficial for his mental health and is eager to resume. The patient is discharged to home. MENTAL STATUS EXAM: Maicol is a 29-year-old white male who is well groomed. He is short-statured with a muscular build. He is alert and oriented x3. His speech is normal rate, rhythm, and volume. He has good eye contact. He reports his mood as a little anxious and reports this to be improved at the end of the conversation. Affect is full range. Thought content is negative for suicidal ideation or passive wish. He denies HI or . Thought process is logical, goal directed, and coherent. There are perceptual disturbances noted. He denies audio or visual hallucinations. Concentration good. Memory 3 /3. His insight and judgment are good in that he was willing to be hospitalized voluntarily. Fund of knowledge is excellent. INSTRUCTIONS GIVEN TO PATIENT: A. Medications: Escitalopram 10 mg p.o. daily, may be given at bedtime due to sedation. B. Diet regular. C. Activity: Ambulation as tolerated. Tobacco cessation is not applicable. There are no pending labs or diagnostic studies. D. Followup care: The patient was referred to [facility] and also given information about counseling services at [facility]. The patient has an appointment with primary care provider Dr. Feliz to establish primary care with him. E. Substance use followup is not applicable. HOSPITAL COURSE: Part A: Reason for Admission: The patient presented to the emergency department multiple times last week due to severe anxiety attacks. He was offered following voluntary admission but declined. The same day, he returned and agreed to voluntary admission. HPI: Maicol reports that he has been suffering from anxiety and depression for a while and saw a mental health professional in the recent past, but is not sure whether it was a doctor or a therapist. He has been on Lexapro 5 mg in the past and was recently started back on this medication by his primary care physician. This was probably about a week ago. He describes his mood as mostly depressed and anxious. He denied ongoing suicidal thoughts until recent past when due to repeated anxiety attacks he thought about suicide without any plan. He denies any ongoing stressors and undiagnosed physical health conditions including hepatomegaly and polycythemia. His primary care has been working on both to rule in or rule out. Past B: Psychiatric treatment rendered: The patient was admitted to adult behavioral services unit on voluntary status. His code status was full. He was placed on 15 minute checks for safety, this was decreased to 30 minute observation and he was allowed staff pass. He agreed to increase escitalopram to 10 mg. He trailed hydroxyzine for anxiety. He reported that this was helpful, but that he felt overly sedated afterwards. He slept well, he was participatory in unit programming. He stated that it was helpful to know that he did not have more severe mental illness such as schizophrenia. As stated above, he has negative memories and thoughts related to being in the and not being able to express emotions. He think that he will do very well in outpatient therapy. The patient's fiance was contacted by Social Work who agreed with discharge plan, although it is brief, Maicol was a pleasure to work with. ELVIS MCDONALD, RAMSEY [id number]/[facility] #: [id number] NATALIA
== END 2019-08-07 15:00 | disposition home or self-care (01) | DRG 751 ==
LOC: ED 19:39 → BSU 21:11
PROVIDERS: ADMIT Psychiatry & Neurology Psychiatry; ATTEND Psychiatry & Neurology Psychiatry
DX: F33.2 Major depressive disorder, recurrent severe without psychotic features (principal); R45.851 Suicidal ideations; F41.9 Anxiety disorder, unspecified; D75.1 Secondary polycythemia; R16.0 Hepatomegaly, not elsewhere classified; Z79.899 Other long term (current) drug therapy
CPT/HCPCS: 36415; 80061; 83036; 99222; 99238; 99284; A9270-GY